=== PATIENT | female | born 1975 | race Caucasian/White ===

== ENCOUNTER 2019-01-19 10:13 | Outpatient (REF) | payer SELFPAY ==
[2019-01-19 22:36] LABS: HGB 14.5 g/dL (12.0-15.5); Mean Corp. HGB Concentration 34.5 g/dL (32.0-36.0); Mean Corpuscular Hemoglobin 33.5 pg (27.0-33.0); Mean Platelet Volume 10.8 fL (8.0-11.0); Platelet Count 297 x1000/uL (130-400); RBC 4.33 m/cumm (4.00-5.20); RBC Distribution Width 12.2 % (11.7-14.6); White Blood Cell Count 5.37 k/cumm (4.4-10.8)
[2019-01-19 22:50] LABS: ALT 39 U/L (14-59); AST 28 U/L (15-37); Albumin 4.1 g/dL (3.4-5.0); Alkaline Phosphatase 48 U/L (46-116); Anion Gap 10.4 mmol/L (3-11); BUN 13 mg/dL (7-18); Bilirubin, Total 0.4 mg/dL (0.2-1.0); C-Reactive Protein 0.26 mg/dL (0.0-0.3); CO2 23.6 mmol/L (21.0-32.0); CREATININE 0.75 mg/dL (0.55-1.02); Calcium 8.9 mg/dL (8.5-10.1); Chloride 104 mmol/L (98-107); Glucose 95 mg/dL (74-106); Potassium 4.4 mmol/L (3.5-5.1); Sodium 138 mmol/L (136-145)
[2019-01-19 23:26] LABS: ESR 12 mm/hr (0-20)
[2019-01-22 21:14] LABS: Anaplasma phagocytophilum Negative (Negative); B. miyamotoi PCR Negative (Negative); Babesia divergens/MO-1 Negative (Negative); Babesia duncani Negative (Negative); Babesia microti Negative (Negative); Ehrlichia chaffeensis Negative (Negative); Ehrlichia ewingii/canis Negative (Negative); Ehrlichia muris eauclairensis Negative (Negative)
[2019-01-23 09:18] LABS: Cyclic Citrullinated Peptide <2.5 U/mL (<5.0)
[2019-01-23 11:29] LABS: Lyme Ab w Rflx to Lyme Confirm Negative (Negative)
== END 2019-01-19 10:33 ==
LOC: NCHCN 10:13
PROVIDERS: PCP Nurse Practitioner Family; Visit Provider Registered Nurse
DX: R51 Headache (principal); M62.89 Other specified disorders of muscle; H53.9 Unspecified visual disturbance
CPT/HCPCS: 80053; 85027; 85652; 86200; 87798; 86140; 86431; 86618

== ENCOUNTER 2019-02-08 09:20 | Outpatient (REF) | payer SELFPAY ==
[2019-02-08 22:35] LABS: Hemoglobin A1C 5.4 % (4.5-6.2)
[2019-02-08 22:56] LABS: ESR 9 mm/hr (0-20)
== END 2019-02-08 09:40 ==
LOC: NCHCN 09:20
PROVIDERS: PCP Nurse Practitioner Family; Visit Provider Registered Nurse
DX: M13.0 Polyarthritis, unspecified (principal); M62.89 Other specified disorders of muscle
CPT/HCPCS: 85652; 83036

== ENCOUNTER 2019-02-23 15:16 | Outpatient (REF) | payer SELFPAY ==
[2019-02-23 21:09] LABS: BUN 15 mg/dL (7-18); CREATININE 0.76 mg/dL (0.55-1.02); Calcium 8.9 mg/dL (8.5-10.1); Chloride 105 mmol/L (98-107); Glucose 118 mg/dL (74-106); Potassium 4.1 mmol/L (3.5-5.1); Sodium 140 mmol/L (136-145)
== END 2019-02-23 15:36 ==
LOC: NCHCN 15:16
PROVIDERS: PCP Nurse Practitioner Family; Visit Provider Registered Nurse
DX: I10 Essential (primary) hypertension (principal)
CPT/HCPCS: 80048

== ENCOUNTER 2019-06-23 21:23 | Outpatient (REF) | payer SELFPAY ==
[2019-06-23 21:05] LABS: Abs Immature Grans 0.03 k/cumm (0.0-0.09); Absolute Basophil Count 0.01 k/cumm (0.0-0.2); Absolute Eosinophil Count 0.01 k/cumm (0.0-0.7); Absolute Lymphocyte Count 0.95 k/cumm (1.2-3.4); Absolute Monocyte Count 0.26 k/cumm (0.11-0.7); Absolute Neutrophil Count 5.93 k/cumm (1.2-6.7); Basophils % 0.1; Eosinophils % 0.1; HCT 41.4 % (36.0-46.0); HGB 14.1 g/dL (12.0-15.5); Immature Grans % 0.4 %; Lymphocytes % 13.2; Mean Corp. HGB Concentration 34.1 g/dL (32.0-36.0); Mean Corpuscular Hemoglobin 34.4 pg (27.0-33.0); Mean Platelet Volume 10.7 fL (8.0-11.0); Monocytes % 3.6; Neutrophils % 82.6; Platelet Count 312 x1000/uL (130-400); RBC Distribution Width 13.3 % (11.7-14.6); White Blood Cell Count 7.19 k/cumm (4.4-10.8)
[2019-06-23 21:22] LABS: ALT 32 U/L (14-59); AST 20 U/L (15-37); Alkaline Phosphatase 37 U/L (46-116); Anion Gap 10.3 mmol/L (3-11); BUN 17 mg/dL (7-18); Bilirubin, Total 0.5 mg/dL (0.2-1.0); C-Reactive Protein 0.29 mg/dL (0.0-0.3); CO2 24.7 mmol/L (21.0-32.0); CREATININE 0.93 mg/dL (0.55-1.02); Calcium 9.3 mg/dL (8.5-10.1); Chloride 102 mmol/L (98-107); Glucose 103 mg/dL (74-106); Potassium 4.5 mmol/L (3.5-5.1); Sodium 137 mmol/L (136-145); Total Protein 7.1 g/dL (6.4-8.2)
[2019-06-27 12:38] LABS: Parvovirus B19 Ab, IgG Positive (Negative); Parvovirus B19 Ab, IgM Negative (Negative)
== END 2019-06-23 21:43 ==
LOC: NCHCN 21:23
PROVIDERS: PCP Registered Nurse; Visit Provider Nurse Practitioner Family
DX: M25.50 Pain in unspecified joint (principal); M05.80 Other rheumatoid arthritis with rheumatoid factor of unspecified site; Z79.899 Other long term (current) drug therapy
CPT/HCPCS: 80053; 85025; 86140; 86747